=== PATIENT | female | born 1950 | race Caucasian/White ===

== ENCOUNTER 2023-05-29 18:32 | Emergency (ER) | payer MEDICARE, OTHER, SELFPAY ==
[2023-05-29 18:37] VITALS: BP 159/77; PULSE 100; RESP 16; TEMP 36.8; O2SAT 96; BMI 29.3
--- NOTE | 2023-05-29 18:44 | CT_ITS ---
[address] [address] Patient Name: LEIGH BONDS MRN: [id number] date: 1950 Sex: F Assigned Patient Location: ED.MAIN Current Patient Location: ER Accession/Order Number: [id number] Exam Date: 05/29/2023 19:50 Report Date: 05/29/2023 20:20 At the request of: JAMIE KELLEY Procedure: CT head/brain wo con EXAMINATION: CT head/brain wo con, 05/29/2023 7:50 PM EST HISTORY: Fall COMPARISON: None. TECHNIQUE: CT scan of the head was performed without IV contrast. CT dose reduction technique was used, including Automated Exposure Control. FINDINGS: BRAIN PARENCHYMA/CSF SPACES: There is mild prominence of the ventricles. There is no hemorrhage, mass effect or midline shift. Moderate low attenuation in the white matter consistent with chronic microvascular ischemia. PARANASAL SINUSES: Near complete opacification of the right sphenoid sinus. SKULL BASE AND CALVARIUM: Normal. EXTRACRANIAL SOFT TISSUES: Normal. CT/CT head/brain wo con IMPRESSION: 1. No acute intracranial abnormality. 2. Near complete opacification of the right sphenoid sinus. Electronically authenticated by: YVONNE HAIDER Date: 05/29/2023 20:20
--- NOTE | 2023-05-29 18:44 | CT_ITS ---
[address] [address] Patient Name: LEIGH BONDS MRN: [id number] date: 1950 Sex: F Assigned Patient Location: ER Current Patient Location: Accession/Order Number: [id number] Exam Date: 05/29/2023 19:50 Report Date: 05/29/2023 20:39 At the request of: JAMIE KELLEY Procedure: CT lumbar spine wo con EXAM: CT lumbar spine wo con, CT pelvis wo con TECHNIQUE: Axial CT images were obtained through the lumbar spine along with sagittal and coronal reformatted images. Axial CT images were obtained through the pelvis along with sagittal and coronal reformatted images. Dose reduction techniques were achieved by using automated exposure control and/or adjustment of mA and/or kV according to patient size and/or use of iterative reconstruction technique. HISTORY: Fall COMPARISON: None. FINDINGS: Lumbar Spine: Bones: Mild acute appearing superior endplate concavity at L2 appears acute. Mild superior endplate concavity at L3 appears acute. There is partial limitation of the S1 vertebra. Alignment: The alignment is anatomic. No acute subluxation. Arthritic changes: Mild degenerative endplate change at L5-S1. Moderate degenerative facet change on the left at L5-S1. Disc spaces: No gross disc herniation given limitation of CT scan. Soft tissues: No soft tissue mass or large hematoma. Pelvis: No acute pelvic fracture. No femoral neck fracture. Mild degenerative changes of both hips, left greater the right. Pelvic soft tissues are unremarkable. CT/CT lumbar spine wo con IMPRESSION: Mild acute appearing superior plate compression deformities of L2 and L3 without associated central canal or neural foraminal compromise. No evidence for fracture of the pelvis or femoral necks. Electronically authenticated by: KAITLYN IRELAND Date: 05/29/2023 20:39
--- NOTE | 2023-05-29 18:44 | CT_ITS ---
[address] [address] Patient Name: LEIGH BONDS MRN: [id number] date: 1950 Sex: F Assigned Patient Location: ER Current Patient Location: Accession/Order Number: [id number] Exam Date: 05/29/2023 19:50 Report Date: 05/29/2023 20:39 At the request of: JAMIE KELLEY Procedure: CT pelvis wo con EXAM: CT lumbar spine wo con, CT pelvis wo con TECHNIQUE: Axial CT images were obtained through the lumbar spine along with sagittal and coronal reformatted images. Axial CT images were obtained through the pelvis along with sagittal and coronal reformatted images. Dose reduction techniques were achieved by using automated exposure control and/or adjustment of mA and/or kV according to patient size and/or use of iterative reconstruction technique. HISTORY: Fall COMPARISON: None. FINDINGS: Lumbar Spine: Bones: Mild acute appearing superior endplate concavity at L2 appears acute. Mild superior endplate concavity at L3 appears acute. There is partial limitation of the S1 vertebra. Alignment: The alignment is anatomic. No acute subluxation. Arthritic changes: Mild degenerative endplate change at L5-S1. Moderate degenerative facet change on the left at L5-S1. Disc spaces: No gross disc herniation given limitation of CT scan. Soft tissues: No soft tissue mass or large hematoma. Pelvis: No acute pelvic fracture. No femoral neck fracture. Mild degenerative changes of both hips, left greater the right. Pelvic soft tissues are unremarkable. CT/CT pelvis wo con IMPRESSION: Mild acute appearing superior plate compression deformities of L2 and L3 without associated central canal or neural foraminal compromise. No evidence for fracture of the pelvis or femoral necks. Electronically authenticated by: KAITLYN IRELAND Date: 05/29/2023 20:39
--- NOTE | 2023-05-29 18:44 | CT_ITS ---
[address] [address] Patient Name: LEIGH BONDS MRN: [id number] date: 1950 Sex: F Assigned Patient Location: ED.MAIN Current Patient Location: Accession/Order Number: [id number] Exam Date: 05/29/2023 19:50 Report Date: 05/29/2023 20:34 At the request of: JAMIE KELLEY Procedure: CT cervical spine wo con EXAMINATION: CT cervical spine wo con TECHNIQUE: Axial CT images were obtained through the cervical spine. Sagittal and coronal reformatted images were also obtained. Dose reduction techniques were achieved by using automated exposure control and/or adjustment of mA and/or kV according to patient size and/or use of iterative reconstruction technique. HISTORY: Fall. COMPARISON: None. FINDINGS: Bones: No fracture Alignment: The alignment is anatomic. No acute subluxation. Arthritic changes: Mild degenerative facet change on the right at C2-C3. Disc spaces: No gross disc herniation given limitation of CT scan. Mild central disc protrusion at C3-C4 Soft tissues: No soft tissue mass or large hematoma. CT/CT cervical spine wo con IMPRESSION: No acute fracture or subluxation. Electronically authenticated by: KAITLYN IRELAND Date: 05/29/2023 20:34
--- NOTE | 2023-05-29 18:45 | ED_ITS ---
HPI - General Adult General Chief complaint: Fall Stated complaint: UNKNOWN Time Seen by Provider: 05/29/23 18:44 Source: patient and family Mode of arrival: ambulance Limitations: no limitations History of Present Illness HPI narrative: Patient is a 72-year-old female who presents to the emergency department by ambulance for the evaluation of low back and coccyx pain after a fall at [facility]. She states that she either missed a step or slipped on a step and landed on her bottom. She does take Eliquis daily. She does not believe that she hit her head but she states she is not sure. She denies any pain radiation or peripheral paresthesias to the lower legs. No medications taken prior to arrival for pain. She has not attempted to ambulate. Related Data Home Medications Medication Instructions Recorded Confirmed apixaban 5 mg tablet (Eliquis) 5 mg PO Q12H 05/29/23 05/29/23 Allergies Allergy/AdvReac Type Severity Reaction Status Date / Time No Known Drug Allergies Allergy Verified 05/29/23 18:36 Review of Systems ROS Constitutional Denies: fever or chills Ears, nose, mouth, and throat Denies: throat pain or nasal congestion Cardiovascular Denies: chest pain Respiratory Denies: shortness of breath or cough Gastrointestinal Denies: nausea or vomiting Musculoskeletal Reports: back pain; Denies: neck pain, extremity pain or extremity swelling Integumentary/Breast Denies: rash Endocrine Denies: excessive urination PFSH PFS Social History Smoking status: Never smoker Exam Narrative Exam Narrative: Gen.: Awake, alert, in no distress Head: Normocephalic, atraumatic ENT: Moist mucous membranes, C-spine nontender with full range of motion Respiratory: No respiratory distress, lungs clear bilaterally, No chest wall tenderness Cardio: Regular rate and rhythm Gastrointestinal: Abdomen is soft, nondistended and nontender to palpation; Pelvis is stable and hips are nontender Back: No bony point tenderness of the T-spine or L-spine, diffuse mild tenderness of the coccyx. No obvious deformity or step-off. No ecchymosis of the posterior Extremities: Moves extremities equally, no injuries noted, Normal dorsiflexion and plantarflexion of the lower extremities, No decrease in sensation to the medial thighs with normal flexion of the bilateral hips Psych: Normal mood and affect Neuro: No focal neuro deficit Skin: Warm, dry, intact Constitutional Vital Signs, click to edit/add: Last Vital Signs Temp 98.2 F 05/29/23 18:37 Pulse 100 H 05/29/23 18:37 Resp 16 05/29/23 18:37 BP 159/77 H 05/29/23 18:37 Pulse Ox 96 05/29/23 18:37 O2 Del Method Room Air 05/29/23 18:45 Course Vital Signs Vital signs: Vital Signs Temperature 98.2 F 05/29/23 18:37 Pulse Rate 100 H 05/29/23 18:37 Respiratory Rate 16 05/29/23 18:37 Blood Pressure 159/77 H 05/29/23 18:37 Pulse Oximetry 96 05/29/23 18:37 Oxygen Delivery Method Room Air 05/29/23 18:37 Temperature 98.2 F 05/29/23 18:37 Pulse Rate 100 H 05/29/23 18:37 Respiratory Rate 16 05/29/23 18:37 Blood Pressure 159/77 H 05/29/23 18:37 Pulse Oximetry 96 05/29/23 18:37 Oxygen Delivery Method Room Air 05/29/23 18:45 Medical Decision Making MDM Narrative Medical decision making narrative: Patient declined pain medication while in the ER, she has no focal neurodeficit. CT of the head and C-spine is unremarkable and CT of the lumbar spine and pelvis shows the patient has mild acute appearing L2 and L3 Fractures. There is no evidence of involvement of the spinal cord. These results were discussed with the patient and her at bedside.We will refer the patient to local orthopedics for possible kyphoplasty as indicated. Patient will be discharged home with a short course of analgesics. She was able to ambulate in the emergency department and has no intractable pain or radicular/paresthesia symptoms in the ER. She declined any medication for pain. She will follow-up with orthopedics. Return to the ER if symptoms change or worsen. Medical Records Medical records reviewed: Yes I reviewed the patient's medical records Imaging Data CT scan - head: Radiologist's impression: ITS Impressions Cervical Spine CT 05/29/23 18:44 IMPRESSION: No acute fracture or subluxation. Electronically authenticated by: KAITLYN IRELAND Date: 05/29/2023 20:[address] 05/29/23 18:44 IMPRESSION: 1. No acute intracranial abnormality. 2. Near complete opacification of the right sphenoid sinus. Electronically authenticated by: YVONNE HAIDER Date: 05/29/2023 20:[address] 05/29/23 18:44 IMPRESSION: Mild acute appearing superior plate compression deformities of L2 and L3 without associated central canal or neural foraminal compromise. No evidence for fracture of the pelvis or femoral necks. Electronically authenticated by: KAITLYN IRELAND Date: 05/29/2023 20:[address] 05/29/23 18:44 IMPRESSION: Mild acute appearing superior plate compression deformities of L2 and L3 without associated central canal or neural foraminal compromise. No evidence for fracture of the pelvis or femoral necks. Electronically authenticated by: KAITLYN IRELAND Date: 05/29/2023 20:39 Discharge Plan Discharge Chief Complaint: Fall Clinical Impression: Fracture of lumbar vertebra, Fall Patient Disposition: Home, Self-Care Time of Disposition Decision: 21:04 Condition: Good Mode of Transportation: Private Vehicle Prescriptions / Home Meds: No Action Eliquis 5 mg tablet 5 mg PO Q12H Instructions: Vertebral Compression Fracture (ED), Kyphoplasty (DC) Additional Instructions: follow-up with Dr. Ling Stand Alone Forms: Portal Instructions Referrals: Physician,Non-Staff, MD [Primary Care Provider] - 1 week
[2023-05-29] MEDS: ACETAMINOPHEN 325 MG TABLET 650 MG PO (21:26)
== END 2023-05-29 21:28 | disposition home or self-care (01) ==
PROVIDERS: Emergency Provider Emergency Medicine
DX: S32.029A Unspecified fracture of second lumbar vertebra, initial encounter for closed fracture (principal); S32.039A Unspecified fracture of third lumbar vertebra, initial encounter for closed fracture; W10.8XXA Fall (on) (from) other stairs and steps, initial encounter; Z79.01 Long term (current) use of anticoagulants
CPT/HCPCS: 70450; 72125; 72131; 72192; 99284